=== PATIENT | female | born 1995 | race Caucasian/White ===

== ENCOUNTER 2016-03-23 03:33 | Emergency (ER) | payer OTHER ==
[~2016-03-23] VITALS: Ht 160 cm; Wt 105.0 kg
[~2016-03-23 03:33] MED LIST: CORTI10A AS; Z.0.NO CURRENT MEDS
[2016-03-23 03:36] VITALS: BP 143/79; PULSE 122; RESP 18; TEMP 97.6; O2SAT 98
[2016-03-23 04:11] VITALS: BP 122/71; PULSE 100; RESP 20; O2SAT 95
[2016-03-23] MEDS ORDERED: SODIUM CHLOR 0.9% 1000 ML INJ 1,000 ML IV SCH (04:19)
--- NOTE | 2016-03-23 04:26 | PD ---
HPI Chief Complaint: GI Complaint Time Seen by Provider: 03:52 Travel History International Travel<30 days: No Contact w/Intl Traveler<30days: No Traveled to known affect area: No History of Present Illness HPI Patient is a 21 year old female presenting with diffuse abdominal cramping and nausea. Symptoms began after eating checkers for dinner. Shortly after, she began vomiting clear fluids, and having watery diarrhea. She denies any blood in the stool. Patient denies ever experiencing anything like this before, any palpitations, dizziness, and lightheadedness. States her abdominal cramping is mild nonradiating. History Past Medical History Medical History: Denies Significant Hx Influenza Vaccination: No LMP: 03/02/16 : 0 Past Surgical History Surgical History: No Previous Surgery Social History Alcohol Use: Yes (OCC) Tobacco Use: No Allergies-Medications (Allergen,Severity, Reaction): Coded Allergies: No Known Allergies (Verified , 03/23/16) Reported Meds & Prescriptions Reported Meds & Active Scripts Active Zofran Odt (Ondansetron Odt) 4 Mg Tab 4 Mg SL Q6HR PRN Keflex (Cephalexin) 500 Mg Cap 500 Mg PO Q6H 5 Days Review of Systems Except as stated in HPI: all other systems reviewed are Neg Physical Exam Narrative GENERAL: well developed, well nourished, obese female SKIN: Warm and dry. HEAD: Atraumatic. Normocephalic. EYES: Pupils equal and round. No scleral icterus. No injection or drainage. ENT: No nasal bleeding or discharge. Mucous membranes pink and moist. NECK: Trachea midline. No JVD. CARDIOVASCULAR: Regular rate and rhythm. RESPIRATORY: No accessory muscle use. Clear to auscultation. Breath sounds equal bilaterally. GASTROINTESTINAL: Abdomen soft, minimally tender to palpation over all 4 quadrants negative Goodwin sign, nondistended. Hepatic and splenic margins not palpable. MUSCULOSKELETAL: Extremities without clubbing, cyanosis, or edema. No obvious deformities. NEUROLOGICAL: Awake and alert. No obvious cranial nerve deficits. Motor grossly within normal limits. Five out of 5 muscle strength in the arms and legs. Normal speech. PSYCHIATRIC: Appropriate mood and affect; insight and judgment normal. Data Data Last Documented VS Vital Signs Date Time Temp Pulse Resp B/P Pulse Ox O2 Delivery O2 Flow Rate FiO2 03/23/16 05:57 80 18 132/61 100 03/23/16 04:52 Room Air 03/23/16 03:36 97.6 Orders Urinalysis - C+S If Indicated (03/23/16 03:55) Ed Urine Pregnancytest Poc (03/23/16 03:55) Complete Blood Count With Diff (03/23/16 04:19) Comprehensive Metabolic Panel (03/23/16 04:19) Lipase (03/23/16 04:19) Iv Access Insert/Monitor (03/23/16 04:19) Ecg Monitoring (03/23/16 04:19) Oximetry (03/23/16 04:19) Ondansetron Inj (Zofran Inj) (03/23/16 04:30) Sodium Chlor 0.9% 1000 Ml Inj (Ns 1000 M (03/23/16 04:19) Sodium Chloride 0.9% Flush (Ns Flush) (03/23/16 04:30) Ed Poc Ultrasound (03/23/16 04:19) Urine Culture (03/23/16 04:07) Labs Laboratory Tests Test 03/23/16 03/23/16 04:07 04:48 Urine Color YELLOW Urine Turbidity HAZY Urine pH 5.5 Urine Specific [place] 1.011 Urine Protein NEG mg/dL Urine Glucose (UA) NEG mg/dL Urine Ketones 10 mg/dL Urine Occult Blood NEG Urine Nitrite NEG Urine Bilirubin NEG Urine Urobilinogen LESS THAN 2.0 MG/DL Urine Leukocyte Esterase LARGE Urine WBC 26 /hpf Urine WBC Clumps OCC Urine Squamous Epithelial 2 /hpf Cells Urine Bacteria MOD /hpf Microscopic Urinalysis Comment CULTURE INDICATED White Blood Count 16.1 TH/MM3 Red Blood Count 5.47 MIL/MM3 Hemoglobin 14.0 GM/DL Hematocrit 41.2 % Mean Corpuscular Volume 75.4 FL Mean Corpuscular Hemoglobin 25.7 PG Mean Corpuscular Hemoglobin 34.1 % Concent Red Cell Distribution Width 13.5 % Platelet Count 375 TH/MM3 Mean Platelet Volume 8.3 FL Neutrophils (%) (Auto) 90.5 % Lymphocytes (%) (Auto) 5.0 % Monocytes (%) (Auto) 3.9 % Eosinophils (%) (Auto) 0.3 % Basophils (%) (Auto) 0.3 % Neutrophils # (Auto) 14.6 TH/MM3 Lymphocytes # (Auto) 0.8 TH/MM3 Monocytes # (Auto) 0.6 TH/MM3 Eosinophils # (Auto) 0.0 TH/MM3 Basophils # (Auto) 0.1 TH/MM3 CBC Comment DIFF FINAL Differential Comment Sodium Level 140 MEQ/L Potassium Level 4.0 MEQ/L Chloride Level 106 MEQ/L Carbon Dioxide Level 23.3 MEQ/L Anion Gap 11 MEQ/L Blood Urea Nitrogen 14 MG/DL Creatinine 1.03 MG/DL Estimat Glomerular Filtration 67 ML/MIN Rate Random Glucose 119 MG/DL Calcium Level 9.3 MG/DL Total Bilirubin 0.6 MG/DL Aspartate Amino Transf 8 U/L (AST/SGOT) Alanine Aminotransferase 13 U/L (ALT/SGPT) Alkaline Phosphatase 77 U/L Total Protein 8.2 GM/DL Albumin 4.1 GM/DL Lipase 64 U/L [facility] Medical Decision Making Medical Screen Exam Complete: Yes Emergency Medical Condition: Yes Differential Diagnosis Acute cholecystitis seems unlikely Gastroenteritis Choledocholithiasis Peptic Ulcer Disease Narrative Course Patient was roomed in emergency department, she was given Zofran as well as normal saline. Abdomen was minimally tender. I think cholecystitis seems unlikely. Appendicitis seems unlikely and certainly is not an acute abdomen at this time. After fluids and Zofran patient states she is feeling much better and will like to go home. Abdomen exam at this point is completely benign. Laboratory workup does show minimally elevated white blood cell count and this was discussed with the patient. I suggested to her that at this time with her benign abdomen Will defer CAT scan but if it worsens she certainly could consider coming back to the emergency department for further workup. She is agreeable. Incidental UTI. Diagnosis Primary Impression: Urinary tract infection Qualified Code: N30.00 - Acute cystitis without hematuria Additional Impression: Nausea vomiting and diarrhea Med/Other Pt SpecificInfo: Prescription(s) given Scripts Ondansetron Odt (Zofran Odt)4 Mg Tab4 Mg SL Q6HR PRN (Nausea/Vomiting) #30 TAB Ref 0 Prov:Moe Sage MD 03/23/16 Cephalexin (Keflex)500 Mg [id number] Mg PO Q6H 5 Days Ref 0 Prov:Moe Sage MD 03/23/16 Disposition: 01 DISCHARGE HOME Condition: Stable Moe Sage MD Mar 23, 2016 04:26
[2016-03-23] MEDS ORDERED: SODIUM CHLORIDE 0.9% FLUSH 5 ML FLUSH IVF PRN (04:30)
[2016-03-23] MEDS ORDERED: ONDANSETRON HCL 4 MG/2 ML VIAL IVP ONE (04:30)
[2016-03-23 04:36] LABS: BACTERIA, URINE MOD /hpf; BLOOD, URINE NEG (NEG); COMMENT (UR) CULTURE INDICATED; CULTURE IF INDICATED CULTURE INDICATED; GLUCOSE,URINE NEG (NEG); KETONE, URINE 10 mg/dL (NEG); NITRITE,URINE NEG (NEG); PH, URINE 5.5 (5.0-8.5); SQUAMOUS EPITHELIAL CELL URINE 2 /hpf (0-5); URINE COLOR YELLOW (YELLW/STRAW)
[2016-03-23 04:52] VITALS: BP 127/69; PULSE 85; RESP 18; O2SAT 99
[2016-03-23 05:02] LABS: AUTOMATED NEUTROPHIL # 14.6 TH/MM3 (1.8-7.7); BASOPHIL # 0.1 TH/MM3 (0-0.2); BASOPHIL % 0.3 % (0.0-2.0); EOSINOPHIL % 0.3 % (0.0-4.0); HEMATOCRIT 41.2 % (35.0-46.0); HEMO FLAGS DIFF FINAL; LYMPHOCYTE # 0.8 TH/MM3 (1.0-4.8); MEAN CELL VOLUME 75.4 FL (80.0-100.0); MEAN CORPUSCULAR HEMOGLOBIN 25.7 PG (27.0-34.0); MEAN CORPUSCULAR HGB CONC 34.1 % (32.0-36.0); MONO % 3.9 % (0.0-8.0); NEUT % 90.5 % (16.0-70.0); PLATELET COUNT 375 TH/MM3 (150-450); RED BLOOD COUNT 5.47 MIL/MM3 (4.00-5.30); RED CELL DISTRIBUTION WIDTH 13.5 % (11.6-17.2); WHITE BLOOD COUNT 16.1 TH/MM3 (4.0-11.0)
[2016-03-23 05:22] LABS: ALT (GPT) 13 U/L (10-53); ANION GAP 11 MEQ/L (5-15); AST (GOT) 8 U/L (15-37); BICARBONATE 23.3 MEQ/L (21.0-32.0); BLOOD UREA NITROGEN 14 MG/DL (7-18); CHLORIDE 106 MEQ/L (98-107); GLOMERULAR FILTRATION RATE 67 ML/MIN (>89); SODIUM (NA) 140 MEQ/L (136-145)
[2016-03-23 05:25] LABS: ALKALINE PHOSPHATASE 77 U/L (45-117); TOTAL BILIRUBIN ADULT 0.6 MG/DL (0.2-1.0)
[2016-03-23] MEDS ORDERED: CEPH-460 PO (05:41)
[2016-03-23] MEDS ORDERED: ZOFR4TAB3 SL (05:41)
[2016-03-23 05:57] VITALS: BP 132/61
[2016-06-12] MEDS ORDERED: PREN1CAP7 PO (10:51)
[2016-07-15] MEDS ORDERED: NITR1CAP36 PO (11:40)
[2016-07-15] MEDS ORDERED: PREN1CAP7 PO (15:13)
== END 2016-03-23 06:17 | disposition home or self-care (01) ==
LOC: NEPC 03:33
DX: N30.00 Acute cystitis without hematuria (principal); B96.89 Other specified bacterial agents as the cause of diseases classified elsewhere; R19.7 Diarrhea, unspecified; R11.2 Nausea with vomiting, unspecified
CPT/HCPCS: 80053; 81001; 83690; 84703; 85025; 87086; 96361; 96374; 99284; J2405; J7030

== ENCOUNTER 2016-09-21 06:06 | Emergency (ER) | payer OTHER, MEDICAID ==
[~2016-09-21 06:06] MED LIST changes: -CORTI10A AS; +PREN1CAP7 PO; -Z.0.NO CURRENT MEDS
--- NOTE | 2016-09-21 08:05 | PD ---
HPI Travel History International Travel<30 Days: No Contact w/Intl Traveler<30Days: No Known Affected Area: No History of Present Illness HPI 21 yo @ 25w2d with [facility] at [facility]. Patient present this morning with c/o one month history of itching on the vulva. It is worse at night. She has tried some "anti-itch" cream which has not helped. She denies any discharge, odor. She also c/o some left side/groin discomfort, mild when she stands on one foot or sits a certain position. Otherwise it does not always bother her. She forgot to bring these up at her [facility]. +FM, no UC, LOF, VB. History Past Medical History Narrative Medical obesity Depression Obstetric History Obstetric History G1 Past Surgical History Surgical History: No Previous Surgery Family History Family History: Negative Social History Alcohol Use: No Tobacco Use: No Substance Abuse: No Allergies-Medications (Allergen,Severity, Reaction): Coded Allergies: No Known Allergies (Verified , 09/11/16) Home Meds Active Scripts Miconazole 7 Vaginal Cream 2% Cream1 Appl VAGINAL HS #1 BOX Ref 0 1 vaginal applicatorful at bedtime Prov:Maribel Carlson MD 09/21/16 W/O Vit A W/ Fe Fumar (Citranatal [place])27-1-260 Mg Cap1 Cap PO DAILY #30 CAP Ref 11 Prov:Missy Cordero CNM [facility] 07/15/16 Review of Systems General / Constitutional: No: Fever, Chills HENT: No: Headaches, Lightheadedness Cardiovascular: No: Chest Pain or Discomfort, Palpitations Respiratory: No: Cough, Short of Breath Gastrointestinal: No: Nausea, Vomiting, Diarrhea, Abdominal Pain Genitourinary: No: Urgency, Frequency, Dysuria, Pelvic Pain, Discharge, Vaginal Bleeding Musculoskeletal: Pain (left side per hpi) Skin: No Rash, Itching, No Lesions Neurologic: No: Weakness, Focal Abnormalities Physical Exam Narrative GENERAL: Well-nourished, well-developed patient. NAD SKIN: Warm and dry. coarse facial hair present HEAD: Normocephalic and atraumatic. EYES: No scleral icterus. No injection or drainage. ENT: No nasal drainage noted. Mucous membranes pink. Airway patent. nose ring. NECK: trachea midline. No JVD. CARDIOVASCULAR: Regular rate RESPIRATORY: No accessory muscle use. ABDOMEN/GI: Abdomen soft, non-tender, no rebound, no guarding. no lesions on folds of skin or pannus Gravid, NT TOCO: No UC GENITOURINARY: External Genitalia: intact with yeast noted on mons pubis and area patient notes itching BUS glands: [-] SSE: white discharge without odor, c/w yeast cx closed FHT's: 140s EXTREMITIES: No cyanosis or edema. BACK: Nontender without obvious deformity. NEUROLOGICAL: Awake and alert. Motor and sensory grossly within normal limits.Normal speech. Data Data Vital Signs Reviewed: Yes Orders Vital Signs (Adult) .ON ADMISSION (09/21/16 08:01) ^ Labor Status (09/21/16 08:01) MDM Narrative Course / MDM 25 weeks FHT reassuring No s/s Labor Vulvovaginitis with yeast Occasional and positional Musculoskeletal discomfort c/w round ligament pain Plan D/c home Rx for miconazole given instructions for usage reviewed Reviewed s/s round ligament pain f/u for [facility] Diagnosis Diagnosis: Primary Impression: Vaginitis affecting in second trimester, antepartum Additional Impressions: 25 weeks gestation of Round ligament pain Vulvovaginal candidiasis Disposition: 01 DISCHARGE HOME Condition: Good Scripts Miconazole 7 Vaginal Cream 2% Cream1 Appl VAGINAL HS #1 BOX Ref 0 1 vaginal applicatorful at bedtime Prov:Maribel Carlson MD 09/21/16 Maribel Carlson MD Sep 21, 2016 08:05
[2016-09-21] MEDS ORDERED: MICOCRE VAGINAL (08:06)
== END 2016-09-21 08:16 | disposition home or self-care (01) ==
LOC: HOBED 06:06
DX: O23.592 Infection of other part of genital tract in pregnancy, second trimester (principal); B37.3 Candidiasis of vulva and vagina; Z3A.25 25 weeks gestation of pregnancy
CPT/HCPCS: 99281

== ENCOUNTER 2016-12-08 14:32 | Emergency (ER) | payer OTHER, MEDICAID ==
[~2016-12-08] VITALS: Ht 160 cm; Wt 118.4 kg
[~2016-12-08 14:32] MED LIST changes: +FERRTAB2 PO; +PROC2.5C RECTAL
--- NOTE | 2016-12-08 15:23 | PD ---
HPI Chief Complaint Abdominal pain Date Seen: Dec 08, 2016 Time Seen: 15:15 Travel History International Travel<30 Days: No Contact w/Intl Traveler<30Days: No Known Affected Area: No History of Present Illness HPI This patient is 21-year-old white female at 36 weeks [facility] who presents combining of lower abdominal pain and cramps today, denies bleeding or leakage of fluid. Baby is active. Heart rate tracing is reactive with good variability contractions seen, urinalysis on dipstick moderate leukocytes otherwise negative Weeks Gestation: 36 Para: 0 : 1 History Social History Alcohol Use: No Tobacco Use: No Substance Abuse: No Allergies-Medications (Allergen,Severity, Reaction): Coded Allergies: No Known Allergies (Verified , 12/04/16) Home Meds Active Scripts W/O Vit A W/ Fe Fumar (Citranatal [place]) 27-1-260 Mg Cap, 1 CAP PO DAILY for Nutritional Supplement, #30 CAP 11 Refills Prov:Missy Cordero CNM [facility] 07/15/16 Discontinued Scripts Multi-Vit/Iron-Folic [id number] C (Ferralet) 90-1-0.012-120 mg Tab, 1 CAPLET PO DAILY, #30 CAPLET Prov:Natalie RameshP 10/23/16 Hydrocortisone Rectal 2.5% (Proctosol Hc 2.5%) 2.5% Cream, 1 APPLIC RECTAL Q4H Y for PAIN/INFLAMMATION, #1 TUBE 1 Refill Prov:Krystina Mahoney [facility] 10/14/16 Review of Systems General / Constitutional: No: Fever, Weight Gain, Chills, Other Eyes: No: Diploplia, Blurred Vision, Visual changes, Pain, Photophobia HENT: No: Headaches, Vertigo, Lightheadedness Cardiovascular: No: Irregular Rhythm, Chest Pain or Discomfort, Palpitations, Tachycardia, Syncope, Varicosities, Edema, Cyanosis Respiratory: No: Cough, Short of Breath, Other Gastrointestinal: No: Nausea, Vomiting, Diarrhea Genitourinary: No: Decreased Urinary Output, Oliguria Musculoskeletal: No: Limited ROM, Weakness, Cramping, Edema, Pain Skin: No Rash, No Itching, No Dryness, No Lumps, No Change in Pigmentation, No Change in Nails, No Alopecia, No Lesions Neurologic: No: Weakness, Dizziness, Syncope, Focal Abnormalities, Coordination Problem, Headache, Slurred Speech, Seizures Psychiatric: No: Depression, Suicidal Ideations, Homicidal Ideation Endocrine: No: Heat Intolerance, Cold Intolerance, Polydipsia, Polyuria, Other Physical Exam Narrative GENERAL: Well-nourished, well-developed patient. SKIN: Warm and dry. HEAD: Normocephalic and atraumatic. EYES: No scleral icterus. No injection or drainage. ENT: No nasal drainage noted. Mucous membranes pink. Airway patent. NECK: Supple, trachea midline. No JVD. CARDIOVASCULAR: Regular rate and rhythm without murmurs, gallops, or rubs. RESPIRATORY: Breath sounds equal bilaterally. No accessory muscle use. BREASTS: Bilateral exam showed no masses , no retractions, no nipple discharge. ABDOMEN/GI: Abdomen soft, non-tender, bowel sounds present, no rebound, no guarding Gravid to [36-] weeks size Fundal Height: [-36] GENITOURINARY: External Genitalia: intact and normal in appearance BUS glands: [-] Cervix: [-post] Dilatation: [FT-] Effacement: [-50] Station: [-3] Presentation: [-vtx] Membranes: [intact or ruptured] Uterine Contractions: [none-] FHT's: Category: [-1] Baseline: [133-] Reactive: [-yes] Variability: [-mod] Decels: [none-] EXTREMITIES: No cyanosis or edema. BACK: Nontender without obvious deformity. No CVA tenderness. NEUROLOGICAL: Awake and alert. Motor and sensory grossly within normal limits. Five out of 5 muscle strength in all muscle groups. Normal speech. Data Data Labs urine dip-- mod leuks o/w neg MDM Interpretation(s) Patient is 21-year-old white female at 36 weeks with lower abdominal pain and cramps. Heart rate tracing is reactive and no regular contractions seen. Urine dipstick negative pain likely soft tissue strain and pain. Cervix is fingertip 50 and -3 Plan Plan for patient to be at home bedrest heating pad or hot bath for symptom relief, Tylenol as needed, increase liquids for hydration. Follow-up with her OB provider Diagnosis Diagnosis: Primary Impression: Abdominal pain during in third trimester Disposition: 01 DISCHARGE HOME Condition: Stable Dionte Aparicio II, MD Dec 08, 2016 15:23
== END 2016-12-08 15:46 | disposition home or self-care (01) ==
LOC: HOBED 14:32
DX: O26.893 Other specified pregnancy related conditions, third trimester (principal); R10.30 Lower abdominal pain, unspecified; Z3A.36 36 weeks gestation of pregnancy
CPT/HCPCS: 99284

== ENCOUNTER 2016-12-08 23:26 | Emergency (ER) | payer OTHER, MEDICAID ==
[2016-12-09] MEDS ORDERED: MEPERIDINE HCL 50 MG/ML VIAL IM ONE
--- NOTE | 2016-12-09 | PD ---
HPI Chief Complaint Upper back pain Date Seen: Dec 08, 2016 Time Seen: 23:50 Travel History International Travel<30 Days: No Contact w/Intl Traveler<30Days: No Known Affected Area: No History of Present Illness HPI Patient is 21-year-old white female at 36 weeks who presents with back pain. Patient was seen here earlier in the day at approximately 2:00 in the afternoon for abdominal cramps at that time. Her dipstick at that time showed a small amount of leukocytes otherwise was negative and she had no back pain at that time now she has no abdominal pain but now has back pain, and she tried hot bath and heating pad and Tylenol and none of that seem to work, she denies bleeding or leakage of fluid baby is active heart rate tracing is reactive she is not blaise Weeks Gestation: 36 Para: 0 : 1 History Social History Alcohol Use: No Tobacco Use: No Substance Abuse: No Allergies-Medications (Allergen,Severity, Reaction): Coded Allergies: No Known Allergies (Verified , 12/04/16) Home Meds Active Scripts W/O Vit A W/ Fe Fumar (Citranatal [place]) 27-1-260 Mg Cap, 1 CAP PO DAILY for Nutritional Supplement, #30 CAP 11 Refills Prov:Missy Cordero CNM [facility] 07/15/16 Discontinued Scripts Multi-Vit/Iron-Folic [id number] C (Ferralet) 90-1-0.012-120 mg Tab, 1 CAPLET PO DAILY, #30 CAPLET Prov:Natalie RameshP 10/23/16 Hydrocortisone Rectal 2.5% (Proctosol Hc 2.5%) 2.5% Cream, 1 APPLIC RECTAL Q4H Y for PAIN/INFLAMMATION, #1 TUBE 1 Refill Prov:Krystina MahoneyP 10/14/16 Review of Systems General / Constitutional: No: Fever, Weight Gain, Chills, Other Eyes: No: Diploplia, Blurred Vision, Visual changes, Pain, Photophobia HENT: No: Headaches, Vertigo, Lightheadedness Cardiovascular: No: Irregular Rhythm, Chest Pain or Discomfort, Palpitations, Tachycardia, Syncope, Varicosities, Edema, Cyanosis Respiratory: No: Cough, Short of Breath, Other Gastrointestinal: No: Nausea, Vomiting, Diarrhea Genitourinary: No: Decreased Urinary Output, Oliguria Musculoskeletal: No: Limited ROM, Weakness, Cramping, Edema, Pain Skin: No Rash, No Itching, No Dryness, No Lumps, No Change in Pigmentation, No Change in Nails, No Alopecia, No Lesions Neurologic: No: Weakness, Dizziness, Syncope, Focal Abnormalities, Coordination Problem, Headache, Slurred Speech, Seizures Psychiatric: No: Depression, Suicidal Ideations, Homicidal Ideation Endocrine: No: Heat Intolerance, Cold Intolerance, Polydipsia, Polyuria, Other Physical Exam Narrative GENERAL: Well-nourished, well-developed patient. SKIN: Warm and dry. HEAD: Normocephalic and atraumatic. EYES: No scleral icterus. No injection or drainage. ENT: No nasal drainage noted. Mucous membranes pink. Airway patent. NECK: Supple, trachea midline. No JVD. CARDIOVASCULAR: Regular rate and rhythm without murmurs, gallops, or rubs. RESPIRATORY: Breath sounds equal bilaterally. No accessory muscle use. BREASTS: Bilateral exam showed no masses , no retractions, no nipple discharge. ABDOMEN/GI: Abdomen soft, non-tender, bowel sounds present, no rebound, no guarding Gravid to [-36] weeks size Fundal Height: [36-] GENITOURINARY: External Genitalia: intact and normal in appearance BUS glands: [-] Cervix: [-Posterior and high] Dilatation: [-] Fingertip Effacement: [-] Thick Station: [-3] Presentation: [-vtx] Membranes: [intact ] Uterine Contractions: [-0] FHT's: Category: [1-] Baseline: [133-] Reactive: [-yes] Variability: [mod-] Decels: [0-] EXTREMITIES: No cyanosis or edema. BACK: Nontender without obvious deformity. No CVA tenderness. NEUROLOGICAL: Awake and alert. Motor and sensory grossly within normal limits. Five out of 5 muscle strength in all muscle groups. Normal speech. MDM Interpretation(s) 21-year-old white female at 36 weeks presents with the back pain. Patient was here around 2 PM earlier today and had abdominal pain. She did not get a pain shot at that time and didn't want that. She was clinical try Tylenol and heating pad and bedrest and she tried those things it didn't help, her abdominal pain went away now she has upper back pain, urine dipstick earlier was positive for minimal leukocytes but otherwise was negative Plan Plan the patient to get IM shot of Demerol Phenergan the night now for pain relief nausea therapy and sedation Diagnosis Diagnosis: Primary Impression: Back pain affecting in third trimester Disposition: 01 DISCHARGE HOME Condition: Stable Dionte Aparicio II, MD Dec 09, 2016 00:00
[2016-12-09] MEDS ORDERED: PROMETHAZINE INJ 25 MG/ML VIAL IM ONE (00:15)
== END 2016-12-09 00:57 | disposition home or self-care (01) ==
LOC: HOBED 23:26
DX: O26.893 Other specified pregnancy related conditions, third trimester (principal); M54.9 Dorsalgia, unspecified; Z3A.36 36 weeks gestation of pregnancy
CPT/HCPCS: 59025; 96372; 99284; J2175; J2550

== ENCOUNTER 2016-12-09 23:34 | Emergency (ER) | payer OTHER, MEDICAID ==
[~2016-12-09 23:34] MED LIST changes: -FERRTAB2 PO; -PROC2.5C RECTAL
[2016-12-09 23:57] VITALS: RESP 22
[2016-12-09 23:58] VITALS: BP 132/59; PULSE 76; TEMP 98.1
[2016-12-10 00:20] LABS: BACTERIA, URINE FEW /hpf; BLOOD, URINE NEG (NEG); COMMENT (UR) CULT NOT INDICATED; CULTURE IF INDICATED CULT NOT INDICATED; GLUCOSE,URINE NEG (NEG); KETONE, URINE NEG (NEG); NITRITE,URINE NEG (NEG); PH, URINE 6.5 (5.0-8.5); SQUAMOUS EPITHELIAL CELL URINE 4 /hpf (0-5); TRANSITIONAL EPI CELLS, URINE <1 /hpf; URINE COLOR LIGHT-YELLOW (YELLW/STRAW)
--- NOTE | 2016-12-10 00:31 | PD ---
HPI Chief Complaint back pain Date Seen: Dec 10, 2016 Travel History International Travel<30 Days: No Contact w/Intl Traveler<30Days: No Known Affected Area: No History of Present Illness HPI 21 yo @ 36w2d. care at [facility]. Patient presents with c/o back pain. She also c/o "baby kicking in the ribs", sharp pain. No regular UC. No VB, LOF or VB. She was seen yesterday twice in the [facility] for the same symptoms. She was given Tylenol and later she was given Demerol and Phenergan for rest overnight. History Past Medical History Narrative Medical anxiety depression obesity tattoo body piercing Obstetric History Obstetric History G1 Past Surgical History Surgical History: No Previous Surgery Family History Family History: Negative Social History Alcohol Use: No Tobacco Use: No Substance Abuse: No Allergies-Medications (Allergen,Severity, Reaction): Coded Allergies: No Known Allergies (Verified , 12/04/16) Home Meds Active Scripts W/O Vit A W/ Fe Fumar (Citranatal [place]) 27-1-260 Mg Cap, 1 CAP PO DAILY for Nutritional Supplement, #30 CAP 11 Refills Prov:Missy Cordero CNM [facility] 07/15/16 Discontinued Scripts Multi-Vit/Iron-Folic [id number] C (Ferralet) 90-1-0.012-120 mg Tab, 1 CAPLET PO DAILY, #30 CAPLET Prov:Natalie Ramesh [facility] 10/23/16 Hydrocortisone Rectal 2.5% (Proctosol Hc 2.5%) 2.5% Cream, 1 APPLIC RECTAL Q4H Y for PAIN/INFLAMMATION, #1 TUBE 1 Refill Prov:Krystina Mahoney [facility] 10/14/16 Review of Systems General / Constitutional: No: Fever Eyes: No: Visual changes HENT: No: Headaches, Lightheadedness Cardiovascular: No: Chest Pain or Discomfort, Palpitations Respiratory: No: Cough, Short of Breath Gastrointestinal: Nausea, No: Vomiting, Abdominal Pain Genitourinary: No: Urgency, Frequency, Dysuria, Discharge, Vaginal Bleeding Musculoskeletal: Pain (back pain per hpi), No: Limited ROM, Weakness, Cramping , Edema Skin: No Rash, No Itching, No Lesions Neurologic: No: Focal Abnormalities, Coordination Problem Psychiatric: Anxiety Physical Exam Narrative GENERAL: Well-nourished, well-developed patient. NAD SKIN: Warm and dry. HEAD: Normocephalic and atraumatic. EYES: No scleral icterus. No injection or drainage. ENT: No nasal drainage noted. Mucous membranes pink. Airway patent. NECK: trachea midline. No JVD. CARDIOVASCULAR: Regular rate RESPIRATORY: No accessory muscle use. ABDOMEN/GI: obese, Abdomen soft, non-tender, no rebound, no guarding Gravid TOCO: occasional UC FHT's: Category: I Baseline: 130 Reactive: + Variability: mod Decels: [-] EXTREMITIES: No cyanosis or edema. BACK: Nontender without obvious deformity. No CVA tenderness. NEUROLOGICAL: Awake and alert. Motor and sensory grossly within normal limits. Normal speech. Data Data Vital Signs Reviewed: Yes Orders Orders Vital Signs (Adult) .ON ADMISSION (12/09/16 23:47) ^ Labor Status (12/09/16 23:47) ^ Non Stress Test (12/09/16 23:47) ^ Hydration (12/09/16 23:47) Urinalysis - C+S If Indicated (12/09/16 23:52) Labs Laboratory Tests Test 12/09/16 23:50 Urine Color LIGHT-YELLOW Urine Turbidity HAZY Urine pH 6.5 Urine Specific [place] 1.006 Urine Protein NEG Urine Glucose (UA) NEG Urine Ketones NEG Urine Occult Blood NEG Urine Nitrite NEG Urine Bilirubin NEG Urine Urobilinogen LESS THAN 2.0 Urine Leukocyte Esterase LARGE Urine RBC 2 Urine WBC 5 Urine Squamous Epithelial Cells 4 Urine Transitional Epithelial Cells <1 Urine Bacteria FEW Microscopic Urinalysis Comment CULT NOT INDICATED MDM Medical Record Reviewed: Yes Narrative Course / MDM 36 weeks related back pain with multiple visits UA negative Normal exam No s/s labor Reactive NST Hydrating orally Plan Reviewed back pain in Recommend Tylenol PRN, warm shower/bath, stretching and frequent position changes for musculoskeletal relief Has f/u OB tomorrow in clinic All questions answered Diagnosis Diagnosis: Primary Impression: Back pain during in third trimester Additional Impression: 36 weeks gestation of Disposition: DISCHARGE HOME Condition: Good Maribel Carlson MD Dec 10, 2016 00:31
== END 2016-12-10 02:00 | disposition home or self-care (01) ==
LOC: HOBED 23:34
DX: O26.893 Other specified pregnancy related conditions, third trimester (principal); M54.9 Dorsalgia, unspecified; O99.343 Other mental disorders complicating pregnancy, third trimester; F41.8 Other specified anxiety disorders; O99.213 Obesity complicating pregnancy, third trimester; Z3A.36 36 weeks gestation of pregnancy
CPT/HCPCS: 81001; 99283

== ENCOUNTER 2016-12-22 01:16 | Emergency (ER) | payer OTHER, MEDICAID ==
--- NOTE | 2016-12-22 02:11 | PD ---
HPI Chief Complaint Decreased movements Date Seen: Dec 22, 2016 Time Seen: 01:50 Travel History International Travel<30 Days: No Contact w/Intl Traveler<30Days: No Known Affected Area: No History of Present Illness HPI Pt is a 21 yo at 38 weeks and 4 days, who presents with c/o not feeling movements all day. EDC . care at [facility]. Has longstanding left groin pain. No vaginal bleeding or leaking. No fevers. Pt now reports feeling movements since arrining of OB ED. Weeks Gestation: 38 Para: 0 : 1 History Past Medical History Narrative Medical Morbid Obesity, h/o Depression Obstetric History Obstetric History Primigravida Past Surgical History Surgical History: No Previous Surgery Family History Family History: Negative Social History Alcohol Use: No Tobacco Use: No Substance Abuse: No Allergies-Medications (Allergen,Severity, Reaction): Coded Allergies: No Known Allergies (Verified , 12/18/16) Home Meds Active Scripts W/O Vit A W/ Fe Fumar (Citranatal [place]) 27-1-260 Mg Cap, 1 CAP PO DAILY for Nutritional Supplement, #30 CAP 11 Refills Prov:CorderoMissy CNM [facility] 07/15/16 Review of Systems Except as stated in HPI: all other systems reviewed are Neg Physical Exam Narrative GENERAL: Well-nourished, well-developed patient. SKIN: Warm and dry. HEAD: Normocephalic and atraumatic. EYES: No scleral icterus. No injection or drainage. ENT: No nasal drainage noted. Mucous membranes pink. Airway patent. NECK: Supple, trachea midline. No JVD. CARDIOVASCULAR: Regular rate and rhythm without murmurs, gallops, or rubs. RESPIRATORY: Breath sounds equal bilaterally. No accessory muscle use. BREASTS: Bilateral exam showed no masses , no retractions, no nipple discharge. ABDOMEN/GI: Abdomen soft, non-tender, bowel sounds present, no rebound, no guarding Gravid to [38] weeks size Fundal Height: [-] GENITOURINARY: Uterine Contractions: [8-10] FHT's: Category: [1] Baseline: [130s] Reactive: [-] Variability: [] Decels: [none] EXTREMITIES: No cyanosis or edema. BACK: Nontender without obvious deformity. No CVA tenderness. NEUROLOGICAL: Awake and alert. Motor and sensory grossly within normal limits. Five out of 5 muscle strength in all muscle groups. Normal speech. Data Data Vital Signs Reviewed: Yes Group B Strep: Negative MDM Medical Record Reviewed: Yes Plan 21 yo at 38 weeks and 4 days with c/o decreased movements. She is now feeling activity here. NST is Cat 1. Pt reassured. Has office appoitment 12-25-2016 Diagnosis Diagnosis: Primary Impression: with 38 completed weeks gestation Additional Impression: Decreased movement during Disposition: 01 DISCHARGE HOME Condition: Good Patient Instructions: General Instructions, Having Your Baby: The Labor Process (GEN), Movement (ED) Departure Forms: Tests/Procedures Rojas Cormier MD Dec 22, 2016 02:11
== END 2016-12-22 02:15 | disposition home or self-care (01) ==
LOC: HOBED 01:16
DX: O36.8130 Decreased fetal movements, third trimester, not applicable or unspecified (principal); Z3A.38 38 weeks gestation of pregnancy
CPT/HCPCS: 59025

== ENCOUNTER 2016-12-30 18:04 | Inpatient (IN) | payer OTHER, MEDICAID ==
[~2016-12-30] VITALS: Ht 160 cm; Wt 120.0 kg
[2016-12-30] MEDS ORDERED: LACTATED RINGER'S 1000 ML INJ 1,000 ML IV PRN (21:05)
--- NOTE | 2016-12-30 21:05 | HHI.HP ---
HPI Chief Complaint Here for induction Date Seen: Dec 30, 2016 Time Seen: 21:00 Travel History International Travel<30 Days: No Contact w/Intl Traveler<30Days: No Known Affected Area: No History of Present Illness HPI 21-year-old who is at 39 weeks and 4 days here for induction due to gestational hypertension. Patient has not had preeclamptic labs drawn in the office but her last 2 visits document an increase in blood pressure to 140s over high 80s. Urine protein was document to be trace on dip in the office. Patient denies any antepartum complications. Patient's had occasional contractions but nothing consistently and denies rupture membranes vaginal discharge or vaginal bleeding. She is group B strep negative Weeks Gestation: 39 (39.4) Para: 0 : 1 History Past Medical History Medical History: Denies Significant Hx Past Surgical History Surgical History: No Previous Surgery Family History Family History: Negative Social History Alcohol Use: No Tobacco Use: No Substance Abuse: No Allergies-Medications (Allergen,Severity, Reaction): Coded Allergies: No Known Allergies (Verified , 12/18/16) Home Meds Active Scripts W/O Vit A W/ Fe Fumar (Citranatal [place]) 27-1-260 Mg Cap, 1 CAP PO DAILY for Nutritional Supplement, #30 CAP 11 Refills Prov:Missy Cordero CNM [facility] 07/15/16 Review of Systems Except as stated in HPI: all other systems reviewed are Neg Physical Exam Narrative GENERAL: Well-nourished, well-developed patient. SKIN: Warm and dry. HEAD: Normocephalic and atraumatic. EYES: No scleral icterus. No injection or drainage. ENT: No nasal drainage noted. Mucous membranes pink. Airway patent. NECK: Supple, trachea midline. No JVD. CARDIOVASCULAR: Regular rate and rhythm without murmurs, gallops, or rubs. RESPIRATORY: Breath sounds equal bilaterally. No accessory muscle use. ABDOMEN/GI: Abdomen soft, non-tender, bowel sounds present, no rebound, no guarding Gravid to [-40] weeks size Fundal Height: [-] GENITOURINARY: External Genitalia: intact and normal in appearance BUS glands: [Normal-] Cervix: [-Mid position] Dilatation: [1-2-] Effacement: [50-] Station: [--2] Presentation: [-Vertex] Membranes: [intact] Uterine Contractions: [Occasional irregular-] FHT's: Category: [-1] Baseline: [140-] Reactive: [Moderate-] Variability: [-Moderate] Decels: [-Absent] EXTREMITIES: No cyanosis or edema. BACK: Nontender without obvious deformity. No CVA tenderness. NEUROLOGICAL: Awake and alert. Motor and sensory grossly within normal limits. Five out of 5 muscle strength in all muscle groups. Normal speech. Caprini VTE Risk Assessment Caprini VTE Risk Assessment: No/Low Risk (score <= 1) Caprini Risk Assessment Model Point Value = 1 Point Value = 2 Point Value = 3 Point Value = 5 Age 41-60 Minor surgery BMI > 25 kg/m2 Swollen legs Varicose veins or History of unexplained or recurrent spontaneous Oral contraceptives or hormone replacement Sepsis (< 1 month) Serious lung disease, including pneumonia (< 1 month) Abnormal pulmonary function Acute myocardial infarction Congestive heart failure (< 1 month) History of inflammatory bowel disease Medical patient at bed rest Age 61-74 Arthroscopic surgery Major open surgery (> 45 min) Laparoscopic surgery (> 45 min) Malignancy Confined to bed (> 72 hours) Immobilizing plaster cast Central venous access Age >= 75 History of VTE Family history of VTE Factor V Leiden Prothrombin [id number] Lupus anticoagulant Anticardiolipin antibodies Elevated serum homocysteine Heparin-induced thrombocytopenia Other congenital or acquired thrombophilia Stroke (< 1 month) Elective arthroplasty Hip, pelvis, or leg fracture Acute spinal cord injury (< 1 month) Prophylaxis Regimen Total Risk Factor Score Risk Level Prophylaxis Regimen 0-1 Low Early ambulation 2 Moderate Order ONE of the following: *Sequential Compression Device (SCD) *Heparin 5000 units SQ BID 3-4 Higher Order ONE of the following medications: *Heparin 5000 units SQ TID *Enoxaparin/Lovenox 40 mg SQ daily (WT < 150 kg, CrCl > 30 mL/min) *Enoxaparin/Lovenox 30 mg SQ daily (WT < 150 kg, CrCl > 10-29 mL/min) *Enoxaparin/Lovenox 30 mg SQ BID (WT < 150 kg, CrCl > 30 mL/min) AND/OR *Sequential Compression Device (SCD) 5 or more Highest Order ONE of the following medications: *Heparin 5000 units SQ TID (Preferred with Epidurals) *Enoxaparin/Lovenox 40 mg SQ daily (WT < 150 kg, CrCl > 30 mL/min) *Enoxaparin/Lovenox 30 mg SQ daily (WT < 150 kg, CrCl > 10-29 mL/min) *Enoxaparin/Lovenox 30 mg SQ BID (WT < 150 kg, CrCl > 30 mL/min) AND *Sequential Compression Device (SCD) Data Data Vital Signs Reviewed: Yes Group B Strep: Negative Assessment/Plan Problem List: (1) 39 weeks gestation of ICD Codes: Z3A.39 - 39 weeks gestation of (2) Gestational hypertension w/o significant proteinuria in 3rd trimester ICD Codes: O13.3 - Gestational [-induced] hypertension without significant proteinuria, third trimester (3) Obesity during in third trimester with antepartum complication ICD Codes: O99.213 - Obesity complicating , third trimester Assessment and Plan 21-year-old who is at 39 weeks and 4 days with gestational hypertension for induction PIH labs will be ordered along with admission labs Discussed with patient the need for magnesium sulfate if needed during labor Cytotec 25 g with a repeat dose in 4 hours if necessary followed by Pitocin augmentation Amelia Brice MD Dec 30, 2016 21:05
[2016-12-30] MEDS ORDERED: MISOPROSTOL 100 MCG TAB ONE (21:10)
[2016-12-30] MEDS ORDERED: SODIUM CHLORIDE 0.9% FLUSH 10 ML FLUSH IV FLUSH PRN (21:15)
[2016-12-30] MEDS ORDERED: LIDOCAINE HCL 1% 50 ML VIAL I-DERMAL PRN (21:15)
[2016-12-30] MEDS ORDERED: OXYTOCIN 30 UNITS-500ML PREMIX 500 ML IV ONE (21:15)
[2016-12-30] MEDS ORDERED: SODIUM CHLORID 0.9% 500 ML INJ 500 ML IV PRN (21:15)
[2016-12-30] MEDS ORDERED: LIDOCAINE HCL 1% 50 ML VIAL INFIL PRN (21:15)
[2016-12-30] MEDS ORDERED: OXYTOCIN 30 UNITS-500ML PREMIX 500 ML IV SCH (21:15)
[2016-12-30] MEDS ORDERED: CITRIC ACID-SODIUM CITRATE LIQ 30 ML UDC PO SCH (21:15)
[2016-12-30] MEDS ORDERED: MISOPROSTOL 100 MCG TAB VAGINAL ONE (21:15)
[2016-12-30] MEDS ORDERED: MINERAL OIL 10 ML VIAL TOPICAL PRN (21:15)
[2016-12-30] MEDS ORDERED: SODIUM CHLOR 0.9% 1000 ML INJ 1,000 ML IV PRN (21:25)
[2016-12-30] MEDS: LACTATED RINGER'S 1000 ML INJ 1,000 ML IV SCH (21:30)
[2016-12-30 21:33] LABS: AUTOMATED NEUTROPHIL # 11.2 TH/MM3 (1.8-7.7); BASOPHIL # 0.2 TH/MM3 (0-0.2); BASOPHIL % 1.4 % (0.0-2.0); EOSINOPHIL # 0.3 TH/MM3 (0-0.4); HEMO FLAGS DIFF FINAL; LYMPH % 20.6 % (9.0-44.0); LYMPHOCYTE # 3.2 TH/MM3 (1.0-4.8); MEAN CELL VOLUME 79.1 FL (80.0-100.0); MEAN CORPUSCULAR HGB CONC 34.1 % (32.0-36.0); MONO % 4.5 % (0.0-8.0); NEUT % 71.5 % (16.0-70.0); PLATELET COUNT 304 TH/MM3 (150-450); WHITE BLOOD COUNT 15.6 TH/MM3 (4.0-11.0)
[2016-12-30 21:52] LABS: ALT (GPT) 14 U/L (10-53); URIC ACID 7.7 MG/DL (2.6-6.0)
[2016-12-30 21:53] LABS: ALKALINE PHOSPHATASE 202 U/L (45-117); TOTAL BILIRUBIN ADULT 0.2 MG/DL (0.2-1.0)
[2016-12-30 21:54] LABS: ANION GAP 9 MEQ/L (5-15); AST (GOT) 25 U/L (15-37); BACTERIA, URINE MANY /hpf; BICARBONATE 20.3 MEQ/L (21.0-32.0); BLOOD UREA NITROGEN 9 MG/DL (7-18); BLOOD, URINE NEG (NEG); CHLORIDE 108 MEQ/L (98-107); COMMENT (UR) CULTURE INDICATED; CULTURE IF INDICATED CULTURE INDICATED; GLOMERULAR FILTRATION RATE 98 ML/MIN (>89); GLUCOSE,URINE NEG (NEG); HYALINE CAST, URINE 1 /lpf (RARE); KETONE, URINE NEG (NEG); MUCUS URINE FEW /lpf (OCC); NITRITE,URINE NEG (NEG); SODIUM (NA) 137 MEQ/L (136-145); SQUAMOUS EPITHELIAL CELL URINE 7 /hpf (0-5); URINE COLOR YELLOW (YELLW/STRAW)
[2016-12-30 22:03] LABS: POTASSIUM 4.2 MEQ/L (3.5-5.1)
[2016-12-30 22:45] VITALS: RESP 18
[2016-12-30 22:46] VITALS: BP 137/80; PULSE 79
[2016-12-31] VITALS (128 sets, daily range): BP systolic 85–158; BP diastolic 56–139; PULSE 6–175; RESP 16–49; TEMP 97.5–98.8
[2016-12-31] MEDS ORDERED: HYDROmorphone HCL PCA 6 MG/30 ML IV SCH ×3 (01:45→02:00)
[2016-12-31] MEDS ORDERED: NALOXONE HCL 0.4 MG/ML AMP IV PUSH PRN ×2 (01:45→02:00)
[2016-12-31] MEDS: LACTATED RINGER'S 1000 ML INJ 1,000 ML IV SCH (01:57)
[2016-12-31] MEDS ORDERED: OXYTOCIN 30 UNITS/NS 500ML PREMIX IV SCH (02:00)
[2016-12-31] MEDS ORDERED: PCA - TOTAL MG DILAUDID DELIVERED PER SHIFT OTHER SCH ×2 (06:00)
[2016-12-31] MEDS ORDERED: ePHEDrine/NS 25 MG/5 ML SYR ONE (07:32)
[2016-12-31] MEDS ORDERED: fentaNYL 2MCG-BUPIV 0.125% INJ 100 ML ONE (07:32)
[2016-12-31] MEDS ORDERED: ONDANSETRON HCL 4 MG/2 ML VIAL IV PUSH PRN (08:00)
[2016-12-31] MEDS ORDERED: oxyCODONE/ACETAMINOPHEN 5 MG/325 MG TAB PO PRN (08:00)
[2016-12-31] MEDS ORDERED: TERBUTALINE INJ 1 MG/ML AMP ONE (08:45)
[2016-12-31] MEDS ORDERED: SODIUM CHLORIDE 0.9% FLUSH 10 ML FLUSH IV FLUSH SCH ×2 (09:00→21:00)
--- NOTE | 2016-12-31 09:32 | PD.LABORPN ---
Subjective Subjective s/p epidural. AROM at 8:45. IUPC and scalp placed by Dr. Louise and Dr. Rossi. Oxygen mask on. No complaints at this time. Doing well laying on her left side. Objective Vital Signs Vital Signs Date Time Temp Pulse Resp B/P (MAP) Pulse Ox O2 Delivery O2 Flow Rate FiO2 12/31/16 07:35 83 12/31/16 07:31 83 140/89 (106) 12/31/16 07:30 77 12/31/16 07:26 97.5 12/31/16 07:25 79 12/31/16 07:20 83 12/31/16 07:15 76 12/31/16 07:10 81 12/31/16 07:05 83 12/31/16 07:01 134/74 (94) 12/31/16 07:01 77 12/31/16 07:00 68 12/31/16 06:55 74 12/31/16 06:50 79 12/31/16 06:45 79 12/31/16 06:40 79 12/31/16 06:35 92 12/31/16 06:31 86 139/74 (95) 12/31/16 06:25 91 12/31/16 06:20 86 12/31/16 06:15 87 12/31/16 06:05 97.5 92 18 12/31/16 06:02 84 135/83 (100) 12/31/16 06:00 18 12/31/16 06:00 93 12/31/16 05:55 88 12/31/16 05:01 82 126/77 (93) 12/31/16 04:58 18 12/31/16 04:30 82 126/78 (94) 12/31/16 03:31 79 132/69 (90) 12/31/16 03:12 18 12/31/16 03:01 79 134/74 (94) 12/31/16 02:41 18 12/31/16 02:31 77 131/72 (91) 12/31/16 02:03 18 12/31/16 02:02 81 127/80 (96) 12/31/16 01:37 84 18 133/81 (98) 12/31/16 01:36 98.7 18 12/31/16 01:35 87 12/31/16 01:30 85 Objective Pelvic Exam: Cervix: mid Dilatation:6 Effacement: 80 Station: -2 Presentation: vertex Membranes: AROM Uterine Contractions:every 2-3 min FHT's: Category: 2 Baseline: 120 Reactive: yes Variability: moderate Decels: yes -BP 85 and then 104, patient placed on left side, pitocin held, given terbutaline 0.25mg, given ephedrine to correct blood pressure, Blood pressures now coming up to 130s/80s. Strip improving to category 1. Weeks Gestation: 39 (39.4) Gest Age Assessed Date: Dec 31, 2016 Gest Age Assessed Time: 21:05 Pt started active labor?: Yes Active labor start date: Dec 31, 2016 Active labor start time: 05:00 Medical induction of labor?: Yes Medical induction start date: Dec 30, 2016 Medical induction start time: 21:00 Artificial rupture of membrane: Yes Artificial ROM date: Dec 31, 2016 Artifical ROM time: 08:45 Assessment/Plan Problem List: (1) 39 weeks gestation of ICD Codes: Z3A.39 - 39 weeks gestation of (2) Gestational hypertension w/o significant proteinuria in 3rd trimester ICD Codes: O13.3 - Gestational [-induced] hypertension without significant proteinuria, third trimester (3) Obesity during in third trimester with antepartum complication ICD Codes: O99.213 - Obesity complicating , third trimester Assessment and Plan 21yr at 39/4 weeks, induced with cytotec for gestation HTN, in active labor 1. IUP Category: 2 Baseline: 120 Reactive: yes Variability: moderate Decels: yes -BP 85 and then 104, patient placed on left side, pitocin held, given terbutaline 0.25mg, given ephedrine to correct blood pressure, Blood pressures now coming up to 130s/80s. Strip improving to category 1. 2. Labor -s/p epidural, AROM, IUPC, and scalp placed - Continue with routine care -Cervical change progressing -Anticipate Zoila Bowman MD R1 Dec 31, 2016 09:32
[2016-12-31] MEDS ORDERED: fentaNYL 2MCG-BUPIV 0.125% 100 ML EPIDURAL SCH (10:00)
[2016-12-31] MEDS ORDERED: DO NOT ADMINISTER ANTICOAGULANTS PRN (10:00)
[2016-12-31] MEDS ORDERED: ePHEDrine/NS 25 MG/5 ML SYR IV PUSH PRN (10:00)
[2016-12-31] MEDS ORDERED: NO SYSTEM NARCOTICS PRN (10:00)
[2016-12-31] MEDS ORDERED: SODIUM CHLORIDE 0.9% FLUSH 10 ML FLUSH IV FLUSH PRN (13:30)
[2016-12-31] MEDS ORDERED: ZOLPIDEM TARTRATE 5 MG TAB PO PRN (13:30)
[2016-12-31] MEDS ORDERED: BENZOCAINE 20% TOPICAL SPRAY 60 ML CAN TOPICAL PRN (13:30)
[2016-12-31] MEDS ORDERED: DOCUSATE SODIUM 50 MG/SENNA 8.6 MG TAB PO PRN (13:30)
[2016-12-31] MEDS ORDERED: WITCH HAZEL 50%/GLYCERIN 12.5% 40 PAD JAR TOPICAL PRN (13:30)
[2016-12-31] MEDS ORDERED: ONDANSETRON ODT 4 MG TAB PO PRN (13:30)
[2016-12-31] MEDS ORDERED: ALUMINUM/MAGNESIUM/SIMETH 30 ML CUP PO PRN (13:30)
[2016-12-31] MEDS ORDERED: OXYTOCIN 30 UNITS-500ML PREMIX 500 ML IV SCH (13:30)
[2016-12-31] MEDS ORDERED: IBUPROFEN 600 MG TAB PO PRN (13:30)
--- NOTE | 2016-12-31 13:32 | PD.OB.DELI ---
Weeks gestation: 39 (39.4) Gest age assessed date: Dec 31, 2016 Gest age assessed time: 21:05 Pt started active labor?: Yes Active labor start date: Dec 31, 2016 Active labor start time: 05:00 Medical induction of labor?: Yes Medical induction start date: Dec 30, 2016 Medical induction start time: 21:00 Artificial rupture of membrane: Yes Artificial ROM date: Dec 31, 2016 Artifical ROM time: 08:45 Anesthesia: Epidural Episiotomy: None Vaginal Delivery: Normal Presentation: Occiput anterior Nuchal Cord: None Delayed cord clamping (45 sec): Yes Infant: Female Delivery date: Dec 31, 2016 Delivery time: 12:48 One Minute : 8 Five Minute : 9 Weight: 2980 g Placenta: Spontaneous delivery Laceration: Vaginal laceration, 2 deg Repair: Vicryl running Estimated blood loss: 500 cc Additional Information Delivery & repair by Dr. Louise Supervised by Dr. Aparicio and Evan Alvares MD Dec 31, 2016 13:32
[2016-12-31] MEDS ORDERED: MEASLES, MUMPS, RUBELLA VACCINE 0.5 ML VIAL SQ ONE (16:00)
[2016-12-31] MEDS ORDERED: DIPHTH/TETANUS/ACEL PERTUSSIS (BOOSTER) 0.5 ML VIAL/PFS IM ONE (16:00)
[2017-01-01 07:45] VITALS: BP 137/83; PULSE 69; RESP 18; TEMP 98.1
[2017-01-01] MEDS: ACETAMINOPHEN 325 MG TAB PO PRN ×2 (07:54→19:35)
--- NOTE | 2017-01-01 08:29 | HHI.OB ---
Subjective Remarks 21 year old female s/p at 39 wks gestation, PPD 1. AFVSS. Patient reports she is feeling well. Bleeding is decreasing and pain is well- controlled. She is formula feeding and bonding well with baby. Ambulating without difficulties. She is tolerating a diet without nausea or vomiting. She has not had a bowel movement. She has passed gas. Denies chest pain, dysuria, shortness of breath, or calf pain. Objective Vitals/I&O Vital Signs Date Time Temp Pulse Resp B/P (MAP) Pulse Ox O2 Delivery O2 Flow Rate FiO2 12/31/16 19:20 98.8 84 49 133/75 (94) 12/31/16 19:20 16 12/31/16 16:05 98.8 6 18 142/82 (102) 12/31/16 14:18 98.6 12/31/16 14:16 85 148/88 (108) 12/31/16 14:00 101 145/115 (125) 12/31/16 13:46 92 140/87 (104) 12/31/16 13:35 20 12/31/16 13:31 102 145/61 (89) 12/31/16 13:20 20 12/31/16 13:16 126 134/80 (98) 12/31/16 13:07 114 127/73 (91) 12/31/16 13:01 175 143/90 (107) 12/31/16 12:01 130 127/65 (85) 12/31/16 12:00 107 12/31/16 11:40 78 12/31/16 11:35 67 12/31/16 11:31 65 134/76 (95) 12/31/16 11:30 69 12/31/16 11:15 68 12/31/16 11:15 97.8 12/31/16 11:10 71 12/31/16 11:05 83 12/31/16 11:01 103 158/105 (122) 12/31/16 11:00 83 12/31/16 10:55 63 12/31/16 10:50 65 12/31/16 10:45 72 12/31/16 10:45 17 12/31/16 10:40 75 12/31/16 10:35 73 12/31/16 10:32 73 131/74 (93) 12/31/16 10:30 74 12/31/16 10:25 70 12/31/16 10:20 86 12/31/16 10:15 71 152/139 (143) 12/31/16 10:11 74 132/80 (97) 12/31/16 10:10 82 12/31/16 10:06 63 125/76 (92) 12/31/16 10:05 62 12/31/16 10:01 63 120/67 (84) 12/31/16 10:00 61 12/31/16 09:56 60 133/65 (87) 12/31/16 09:55 61 12/31/16 09:51 69 119/72 (88) 12/31/16 09:50 59 12/31/16 09:46 63 122/77 (92) 12/31/16 09:45 60 12/31/16 09:45 18 12/31/16 09:41 56 122/70 (87) 12/31/16 09:40 59 12/31/16 09:36 60 125/69 (87) 12/31/16 09:31 64 125/105 (112) 12/31/16 09:30 64 12/31/16 09:26 63 119/86 (97) 12/31/16 09:25 64 12/31/16 09:21 68 124/87 (99) 12/31/16 09:20 63 12/31/16 09:16 64 137/69 (91) 12/31/16 09:15 66 12/31/16 09:11 70 133/99 (110) 12/31/16 09:10 67 12/31/16 09:06 70 126/88 (101) 12/31/16 09:05 65 12/31/16 09:01 67 132/78 (96) 12/31/16 09:00 76 12/31/16 08:56 70 120/56 (77) 12/31/16 08:55 72 12/31/16 08:51 67 129/65 (86) 12/31/16 08:50 65 12/31/16 08:46 68 119/68 (85) 12/31/16 08:45 61 12/31/16 08:45 18 12/31/16 08:43 60 104/67 (79) 12/31/16 08:41 95 85/65 (72) 12/31/16 08:40 101 12/31/16 08:36 98 129/81 (97) 12/31/16 08:35 95 12/31/16 08:31 73 133/64 (87) 12/31/16 08:30 129 Objective Remarks GENERAL: Well-nourished, well-developed patient. CARDIOVASCULAR: Regular rate and rhythm without murmurs, gallops, or rubs. RESPIRATORY: Breath sounds equal bilaterally. No accessory muscle use. ABDOMEN/GI: Abdomen soft, non-tender. Fundus: Firm, non-tender at umbilicus. GENITOURINARY: Light to moderate bleeding. EXTREMITIES: No cyanosis or edema, non-tender, without signs of DVT. Medications and IVs Current Medications Medications (Trade) Dose Ordered Sig/Reina Route Start Time Stop Time Status Last Admin Miscellaneous Information No systemic narcotics to be given except... UNSCH PRN .XX 12/31/16 10:00 01/01/17 09:59 Miscellaneous Information DO NOT ADMINISTER ANY ANTICOAGUL... UNSCH PRN .XX 12/31/16 10:00 01/01/17 09:59 (NS Flush) 2 ml BID IV FLUSH 12/31/16 21:00 (NS Flush) 2 ml UNSCH PRN IV FLUSH 12/31/16 13:30 (Tylenol) 650 mg Q4H PRN PO 12/31/16 13:30 01/01/17 07:54 (Motrin) 600 mg Q6H PRN PO 12/31/16 13:30 (Americaine 20% Top Spr) 1 spray Q4H PRN TOPICAL 12/31/16 13:30 12/31/16 16:28 (Tucks Pads) 1 applic QID PRN TOPICAL 12/31/16 13:30 12/31/16 16:28 (Kathi-Colace) 2 tab Q12H PRN PO 12/31/16 13:30 (Ambien) 5 mg HS PRN PO 12/31/16 13:30 (Mag-Al Plus Susp Liq) 15 ml Q8H PRN PO 12/31/16 13:30 (Zofran Odt) 4 mg Q6H PRN PO 12/31/16 13:30 Assessment/Plan Problem List: (1) 39 weeks gestation of ICD Codes: Z3A.39 - 39 weeks gestation of (2) Gestational hypertension w/o significant proteinuria in 3rd trimester ICD Codes: O13.3 - Gestational [-induced] hypertension without significant proteinuria, third trimester (3) Obesity during in third trimester with antepartum complication ICD Codes: O99.213 - Obesity complicating , third trimester Assessment and Plan 21 yo female s/p , PPD 1 - AFVSS - Continue routine care - Motrin PRN pain - Encourage OOB - Pelvic rest x 6 wks - Contraception: progestin-only OCPs starting at 6 weeks - Anticipate D/C 01/02 Evan Rossi MD R2 Jan 01, 2017 08:29
[2017-01-01 20:05] VITALS: BP 104/67; PULSE 88; RESP 16
[2017-01-02] MEDS: ACETAMINOPHEN 325 MG TAB PO PRN (02:28)
--- NOTE | 2017-01-02 08:27 | HHI.DCPOC ---
Discharge Care Plan Diagnosis: (1) Normal vaginal delivery Report Symptoms to Your Doctor -Temperature above 100.5 degrees -Redness, of incision or excessive or foul smelling drainage -Unusual pain or calf pain -Increased vaginal bleeding -Painful or difficulty urinating -Feelings of extreme sadness or anxiety after 2 weeks Goals to Promote Your Health * To prevent worsening of your condition and complications * To maintain your health at the optimal level Directions to Meet Your Goals Take your medications as prescribed Follow your dietary instruction Follow activity as directed Ensure plenty of rest for recovery Drink fluids for hydration Keep your appointments as scheduled Take your immunizations and boosters as scheduled If your symptoms worsen call your PCP, if no PCP go to Urgent Care Center or Emergency Room Smoking is Dangerous to Your Health. Avoid second hand smoke Call the 24-hour crisis hotline for domestic abuse at Zoila Louise MD R1 Jan 02, 2017 08:27
[2017-01-02 08:39] VITALS: BP 120/62; PULSE 87; RESP 18
--- NOTE | 2017-01-02 09:15 | HHI.OB ---
Subjective Remarks 21 year old female s/p at 39 wks gestation, PPD 2. AFVSS. Patient reports she is feeling well. Bleeding is decreasing and pain is well- controlled. She is formula feeding and bonding well with baby. Ambulating without difficulties. She is tolerating a diet without nausea or vomiting. She has not had a bowel movement. She has passed gas. Denies chest pain, dysuria, shortness of breath, or calf pain. Objective Vitals/I&O Vital Signs Date Time Temp Pulse Resp B/P (MAP) Pulse Ox O2 Delivery O2 Flow Rate FiO2 01/01/17 20:05 88 16 104/67 (79) Objective Remarks GENERAL: Well-nourished, well-developed patient. CARDIOVASCULAR: Regular rate and rhythm without murmurs, gallops, or rubs. RESPIRATORY: Breath sounds equal bilaterally. No accessory muscle use. ABDOMEN/GI: Abdomen soft, non-tender. Fundus: Firm, non-tender at umbilicus. GENITOURINARY: Light to moderate bleeding. EXTREMITIES: No cyanosis or edema, non-tender, without signs of DVT. Medications and IVs Current Medications Medications (Trade) Dose Ordered Sig/Reina Route Start Time Stop Time Status Last Admin (NS Flush) 2 ml BID IV FLUSH 12/31/16 21:00 (NS Flush) 2 ml UNSCH PRN IV FLUSH 12/31/16 13:30 (Tylenol) 650 mg Q4H PRN PO 12/31/16 13:30 01/02/17 02:28 (Motrin) 600 mg Q6H PRN PO 12/31/16 13:30 (Americaine 20% Top Spr) 1 spray Q4H PRN TOPICAL 12/31/16 13:30 12/31/16 16:28 (Tucks Pads) 1 applic QID PRN TOPICAL 12/31/16 13:30 12/31/16 16:28 (Kathi-Colace) 2 tab Q12H PRN PO 12/31/16 13:30 (Ambien) 5 mg HS PRN PO 12/31/16 13:30 (Mag-Al Plus Susp Liq) 15 ml Q8H PRN PO 12/31/16 13:30 (Zofran Odt) 4 mg Q6H PRN PO 12/31/16 13:30 Assessment/Plan Problem List: (1) 39 weeks gestation of ICD Codes: Z3A.39 - 39 weeks gestation of (2) Gestational hypertension w/o significant proteinuria in 3rd trimester ICD Codes: O13.3 - Gestational [-induced] hypertension without significant proteinuria, third trimester (3) Obesity during in third trimester with antepartum complication ICD Codes: O99.213 - Obesity complicating , third trimester Assessment and Plan 21 yo female s/p , PPD 2 - AFVSS - Continue routine care - Motrin PRN pain - Encourage OOB - Pelvic rest x 6 wks - Contraception: progestin-only OCPs starting at 6 weeks - Anticipate D/C today Zoila Louise MD R1 Jan 02, 2017 09:15
== END 2017-01-02 10:50 | disposition home or self-care (01) | DRG 775 ==
LOC: H2EA 19:58 → H1EA 12-31 14:40
PROVIDERS: ADMIT Obstetrics & Gynecology Obstetrics; ATTEND Obstetrics & Gynecology Obstetrics
PROC: 3E0P3VZ Introduction of Hormone into Female Reproductive, Percutaneous Approach (ICD-10-PCS; 2016-12-30)
PROC: 10E0XZZ Delivery of Products of Conception, External Approach (ICD-10-PCS; principal; 2016-12-31)
PROC: 0UQGXZZ Repair Vagina, External Approach (ICD-10-PCS; 2016-12-31)
PROC: 10907ZC Drainage of Amniotic Fluid, Therapeutic from Products of Conception, Via Natural or Artificial Opening (ICD-10-PCS; 2016-12-31)
PROC: 00HU33Z Insertion of Infusion Device into Spinal Canal, Percutaneous Approach (ICD-10-PCS; 2016-12-31)
PROC: 3E0R3BZ Introduction of Anesthetic Agent into Spinal Canal, Percutaneous Approach (ICD-10-PCS; 2016-12-31)
DX: O13.4 Gestational [pregnancy-induced] hypertension without significant proteinuria, complicating childbirth (principal); Z68.42 Body mass index [BMI] 45.0-49.9, adult; O71.4 Obstetric high vaginal laceration alone; O99.214 Obesity complicating childbirth; E66.9 Obesity, unspecified; Z3A.39 39 weeks gestation of pregnancy; Z37.0 Single live birth
CPT/HCPCS: 59025; 80053; 80307; 81001; 84550; 85025; 86592; 86900; 86901; 87086; J2590; J3105; J7120

== ENCOUNTER 2017-02-18 07:39 | Emergency (ER) | payer OTHER, MEDICAID ==
[2017-02-18 07:41] VITALS: BP 135/79; PULSE 56; RESP 16; TEMP 98.2; O2SAT 100
[2017-02-18] MEDS ORDERED: IBUP1TAB7 PO (08:06)
[2017-02-18] MEDS ORDERED: ROBA500T PO (08:06)
--- NOTE | 2017-02-18 08:06 | PD ---
HPI Chief Complaint: Back/ Neck Pain or Injury Time Seen by Provider: 08:03 Travel History International Travel<30 days: No Contact w/Intl Traveler<30days: No Traveled to known affect area: No History of Present Illness HPI 22-year-old female presents to the emergency Department with complaint of right upper back pain, around her scapula, 3 days. Denies injury. Reports back pain like this before in the past. Denies paresthesias, loss of sensation, decreased range of motion, decreased strength all extremity. Denies IV drug use or cancer. Denies fever. Says the pain was so bad this morning that she vomited one time. He does not had previous or continued vomiting. Vomited last about 6 hours ago. Denies dysuria, abdominal pain, change in stool. Has tried ice and heat for symptomatic management. Rates pain 4/10. Describes it as a muscle spasm. Pain comes on spontaneously. No known aggravating or relieving factors. Pain radiates to the side of her rib cage. Denies chest pain or shortness of breath. Last menstrual period was March 28, 2016; had a normal vaginal delivery 7 weeks ago. No known allergies. Denies significant past medical history. Does not have established primary care provider. Has no medical complaints. No other modifying factors or associated signs and symptoms. PFSH Past Medical History Medical History: Denies Significant Hx Diminished Hearing: No Immunizations Current: Yes ?: Not LMP: 03/28/16 : 1 Para: 1 Past Surgical History Surgical History: No Previous Surgery Social History Alcohol Use: Yes (Ocasionally ) Tobacco Use: No Substance Use: No Allergies-Medications (Allergen,Severity, Reaction): Coded Allergies: No Known Allergies (Verified Adverse Reaction, Unknown, 02/18/17) Reported Meds & Prescriptions Reported Meds & Active Scripts Active Ibuprofen 800 Mg Tab 800 Mg PO Q6HR PRN Robaxin (Methocarbamol) 500 Mg Tab 500 Mg PO QID PRN Review of Systems Except as stated in HPI: all other systems reviewed are Neg Physical Exam Narrative GENERAL: Well-nourished, well-developed female patient, in no acute distress; afebrile, nontoxic-appearing SKIN: Warm and dry. HEAD: Atraumatic. Normocephalic. EYES: Pupils equal and round. No scleral icterus. No injection or drainage. ENT: Mucosa pink and moist. Airway patent. NECK: Trachea midline. Moving freely. No midline tenderness on palpation of the cervical spine. CARDIOVASCULAR: Regular rate. RESPIRATORY: No accessory muscle use. GASTROINTESTINAL: Obese. MUSCULOSKELETAL: Bilateral lower extremities supple and non-tense with 2+ pedal pulses and sensory intact; with full range of motion and 5/5 strength. Ambulatory in room with normal gait. Sitting up in bed at 90. No obvious deformities. No clubbing. No cyanosis. No edema. BACK: No CVA tenderness. No midline point tenderness on palpation of the lumbar ot thoracic spine. Tenderness on palpation of right upper thoracic musculature around the base of the scapula. No obvious deformities. NEUROLOGICAL: Awake and alert. Oriented 3. No obvious cranial nerve deficits. Motor grossly within normal limits. Normal speech. Moves all extremities. 5/5 strength to all extremities. Sensory intact. PSYCHIATRIC: Appropriate mood and affect; insight and judgment normal. Data Data Last Documented VS Vital Signs Date Time Temp Pulse Resp B/P (MAP) Pulse Ox O2 Delivery O2 Flow Rate FiO2 02/18/17 07:41 98.2 56 16 135/79 (97) 100 Orders Orders Ketorolac Inj (Toradol Inj) (02/18/17 08:15) Orphenadrine Inj (Norflex Inj) (02/18/17 08:15) Urinalysis - C+S If Indicated (02/18/17 08:19) Ed Urine Pregnancytest Poc (02/18/17 08:19) Ed Discharge Order (02/18/17 08:57) Labs Laboratory Tests Test 02/18/17 08:30 Urine Color YELLOW Urine Turbidity CLEAR Urine pH 6.5 Urine Specific [place] 1.012 Urine Protein NEG mg/dL Urine Glucose (UA) NEG mg/dL Urine Ketones NEG mg/dL Urine Occult Blood NEG Urine Nitrite NEG Urine Bilirubin NEG Urine Urobilinogen LESS THAN 2.0 MG/DL Urine Leukocyte Esterase MOD Urine RBC 2 /hpf Urine WBC 2 /hpf Urine Squamous Epithelial Cells 7 /hpf Urine Bacteria OCC /hpf Urine Granular Casts 1 /lpf Urine Yeast (Budding) RARE Microscopic Urinalysis Comment CULT NOT INDICATED MDM Medical Decision Making Medical Screen Exam Complete: Yes Emergency Medical Condition: Yes Medical Record Reviewed: Yes Differential Diagnosis Muscle spasm of the back, muscle strain, back pain, pyelonephritis, UTI Narrative Course 22-year-old female physical exam and history of present illness consistent with spasm of thoracic back muscle on the right. Patient is afebrile and nontoxic- appearing. Denies fever. She did vomit one time this morning secondary to the pain. Denies injury. Denies IV drug use or cancer. No midline tenderness on palpation of the cervical, thoracic, lumbar spine. No CVA tenderness. I will check a urinalysis to rule out UTI. UPT negative. Toradol and Norflex administered in the ER. 0858: Urinalysis without signs of infection. Ibuprofen and Robaxin prescribed for home. Instructed patient to follow up with primary care provider. Patient verbalizes understanding and agreement with treatment plan. Patient is medically cleared and stable for discharge. Discussed reasons to return to the emergency department. Patient agrees with treatment plan. The patients vital signs are stable and the patient is stable for outpatient follow-up and treatment. Patient discharged home, stable and in no acute distress. Diagnosis Primary Impression: Spasm of thoracic back muscle Referrals: [facility] Primary Care Physician Patient Instructions: General Instructions, Muscle Spasm (ED) Additional Instructions: Tylenol or ibuprofen as directed and as needed for pain Robaxin as prescribed and as needed for muscle spasms Heating pad and/or ice to affected area to reduce pain Avoid aggravating activities; increase activity as tolerated Follow-up with primary care provider Return to emergency department immediately with worsening of symptoms Med/Other Pt SpecificInfo: Prescription(s) given Scripts Ibuprofen (Ibuprofen) 800 Mg Tab 800 MG PO Q6HR Y for PAIN, #30 TAB 0 Refills Prov: Augusta Camacho 02/18/17 Methocarbamol (Robaxin) 500 Mg Tab 500 MG PO QID Y for MUSCLE SPASM, #30 TAB 0 Refills Prov: Augusta Camacho 02/18/17 Disposition: DISCHARGE HOME Condition: Stable Augusta Camacho Feb 18, 2017 08:06
[2017-02-18] MEDS ORDERED: KETOROLAC TROMETHAMINE 60 MG/2 ML (IM) VIAL IM ONE (08:15)
[2017-02-18] MEDS ORDERED: ORPHENADRINE INJ 60 MG/2 ML AMP IM ONE (08:15)
[2017-02-18 08:44] LABS: BACTERIA, URINE OCC /hpf; BLOOD, URINE NEG (NEG); GLUCOSE,URINE NEG (NEG); GRANULAR CAST, URINE 1 /lpf; KETONE, URINE NEG (NEG); NITRITE,URINE NEG (NEG); PH, URINE 6.5 (5.0-8.5); SQUAMOUS EPITHELIAL CELL URINE 7 /hpf (0-5); URINE COLOR YELLOW (YELLW/STRAW)
[2017-02-18 08:46] LABS: COMMENT (UR) CULT NOT INDICATED; CULTURE IF INDICATED CULT NOT INDICATED
[2017-02-18 09:05] VITALS: BP 126/71
== END 2017-02-18 09:10 | disposition home or self-care (01) ==
LOC: NEPD 07:39
DX: M62.830 Muscle spasm of back (principal); Z79.899 Other long term (current) drug therapy
CPT/HCPCS: 81001; 84703; 96372; 99285; J1885; J2360